=== PATIENT | male | born 1940 ===

== ENCOUNTER 2018-08-24 14:07 | Outpatient (CLI) | payer MEDICARE, OTHER | END 2018-08-24 14:08 | disposition short-term general hospital (02) | LOC: EMS 14:07 | PROVIDERS: ATTEND Surgery | DX: R55 Syncope and collapse (principal); R53.1 Weakness; R11.0 Nausea | CPT/HCPCS: A0425; A0427; A0888 ==

== ENCOUNTER 2020-09-02 15:36 | Outpatient (CLI) | payer MEDICARE, OTHER | END 2020-09-02 15:37 | disposition E | LOC: EMS 15:36 ==